=== PATIENT | male | born 1960 | race Caucasian/White ===

== ENCOUNTER 2019-09-15 14:35 | Inpatient (IN) | payer MEDICAID ==
[~2019-09-15] VITALS: Ht 185.4 cm; Wt 69.0 kg
[2019-09-15] MEDS ORDERED: pantoprazole 40 MG vial IV ONE (14:55)
[2019-09-15] MEDS ORDERED: CefTRIAXone/D5W-Rocephin 1gm 50 ML IV ONE (15:00)
[2019-09-15 15:50] LABS: BASOPHILS % (AUTO) 0.1 % (0-1); EOSINOPHILS % (AUTO) 0 % (0-6); HEMATOCRIT 39.9 % (42.0-52.0); HEMOGLOBIN 13.3 g/dl (14.0-17.9); LYMPHOCYTES # (AUTO) 0.5 X10'3 (1.1-4.8); LYMPHOCYTES % (AUTO) 2.5 % (21-51); MEAN CORPUSCULAR HEMOGLOBIN 31.1 PG (27.0-31.0); MEAN CORPUSCULAR HGB CONC 33.4 g/dL (33.0-36.5); MEAN CORPUSCULAR VOLUME 93.2 FL (78-98); MEAN PLATELET VOLUME 9.5 FL (7.4-10.4); MONOCYTES # (AUTO) 1.9 X10'3 (0-0.9); MONOCYTES % (AUTO) 9.4 % (2-12); NEUTROPHILS # (AUTO) 18.2 X10'3 (1.8-7.7); PLATELET COUNT 184 X10'3 (140-440); RED BLOOD COUNT 4.28 X10'6 (4.70-6.10); WHITE BLOOD COUNT 20.7 X10'3 (4.5-11.0)
[2019-09-15 15:58] LABS: ALANINE AMINOTRANSFERASE 31 U/L (12-78); ALBUMIN 2.6 G/DL (3.4-5.0); ALBUMIN/GLOBULIN RATIO 0.7 (1.1-1.5); ALKALINE PHOSPHATASE 48 IU/L (46-116); ANION GAP 13 (8-16); ASPARTATE AMINO TRANSFERASE 25 U/L (10-37); BILIRUBIN,TOTAL 0.8 MG/DL (0.1-1.0); BLOOD UREA NITROGEN 26 MG/DL (7-18); BUN/CREATININE RATIO 20.2 (5.4-32.0); CALCIUM 8.3 MG/DL (8.5-10.1); CHLORIDE 105 MMOL/L (99-107); CREATININE 1.29 MG/DL (0.60-1.10); GLUCOSE 128 MG/DL (70-104); POTASSIUM 3.4 MMOL/L (3.5-5.1); SODIUM 137 MMOL/L (135-145); TOTAL CARBON DIOXIDE 19.2 MMOL/L (24-32); TOTAL PROTEIN 6.6 G/DL (6.4-8.2); eGFR 57 ML/MIN
[2019-09-15 16:05] LABS: TOTAL CELLS COUNTED 100
[2019-09-15 16:06] LABS: PLATELET ESTIMATE NORMAL
[2019-09-15] MEDS ORDERED: ondansetron/PF 4mg/2ml inj IV PRN (17:30)
[2019-09-15] MEDS ORDERED: potassium CL 10mEq/100ml bag 100 ML IV PRN ×2 (17:30)
[2019-09-15] MEDS ORDERED: potassium Cl 20 mEq SR tablet PO PRN (17:30)
[2019-09-15] MEDS ORDERED: magnesium 4gm in 100ml NS 100 ML IV PRN (17:30)
[2019-09-15] MEDS ORDERED: acetaminophen 325mg tablet PO PRN (17:30)
[2019-09-15] MEDS ORDERED: morphine 2 MG/ML inj. syringe IV PRN ×2 (17:30)
[2019-09-15] MEDS ORDERED: magnesium Cl slow-release 64mg tablet PO PRN (17:30)
[2019-09-15] MEDS ORDERED: magnesium 2GM in 50ml NS 50 ML IV PRN (17:30)
[2019-09-15] MEDS ORDERED: mag hydrox/Alum hydrox/simeth 30ml oral suspension PO PRN (17:30)
--- NOTE | 2019-09-15 18:04 | NUR ---
ORTHO ZARA AT BEDSIDE FOR SPLINT CARE.
[2019-09-15] MEDS: normal saline 1000ml 1,000 ML IV SCH (18:07)
[2019-09-15] MEDS ORDERED: NO HOME MEDS (18:10)
[2019-09-15 18:19] LABS: CLARITY,URINE SLIGHTLY CLOUDY (Clear); COLOR,URINE YELLOW (Yellow); GLUCOSE, URINE NEGATIVE (Neg); KETONES,URINE TRACE mg/dl (Neg); LEUKOCYTE ESTERASE ,URINE NEGATIVE (Neg); NITRITES, URINE NEGATIVE (Neg); OCCULT BLOOD,URINE MODERATE (Neg); PROTEIN,URINE 100 mg/dl (Neg); UA COLLECTION TYPE STRAIGHT CATH
[2019-09-15 18:31] LABS: HYALINE CASTS >30 /LPF (NEGATIVE)
[2019-09-15 18:33] LABS: CELLULAR CAST 0-4 /LPF (NEGATIVE); RBC,URINE 0-2 /HPF (0-2)
[2019-09-15 18:34] LABS: BACTERIA,URINE 1+ /HPF (Neg); FINE GRANULAR CAST 0-3 /LPF (NEGATIVE); SQUAMOUS EPITHELIAL CELL,UR FEW /LPF (FEW)
--- NOTE | 2019-09-15 18:35 | NUR ---
received report from ED. room is ready. requested they bring pt's tray with them for dinner.
[2019-09-15 18:36] LABS: CREATINE KINASE 530 U/L (39-308)
[2019-09-15 18:49] LABS: URINE AMPHETAMINE SCREEN POSITIVE (Neg); URINE BARBITUATE SCREEN NEGATIVE (Neg); URINE BENZODIAZEPINES SCREEN NEGATIVE (Neg); URINE CANNABINOID SCREEN POSITIVE (Neg); URINE COCAINE SCREEN NEGATIVE (Neg); URINE METHADONE SCREEN NEGATIVE (Neg); URINE OPIATE SCREEN NEGATIVE (Neg); URINE PHENCYCLIDINE SCREEN NEGATIVE (Neg)
[2019-09-15 19:00] VITALS: BP_SYST 11; BP_SYST 119; BP_DIAS 65
[2019-09-15] MEDS: potassium Cl 20 mEq SR tablet PO PRN (19:09)
[2019-09-15] MEDS: heparin, porcine 5000 units/ml vial SQ SCH (19:10)
[2019-09-15] MEDS: vancomycin/NS 1 GM ADD-VANTAGE 250 ML IV SCH (19:15)
[2019-09-15] MEDS ORDERED: pneumococcal 23-VAL P-sac vacc 25 mcg/0.5ml vial IMVAC ONE (19:40)
[2019-09-15] MEDS: K and/or MAG REPLACEMENT MC SCH (20:00)
[2019-09-15] MEDS ORDERED: temazepam 15mg capsule PO PRN (21:00)
[2019-09-15 22:00] VITALS: BP 97/59
[2019-09-16] MEDS: normal saline 1000ml 1,000 ML IV SCH ×5 (01:28→22:47)
--- NOTE | 2019-09-16 02:05 | NUR ---
pictures of wounds taken. pt doesn't feel he needs to void yet. will continue to monitor.
[2019-09-16 02:30] VITALS: BP 113/77
[2019-09-16 06:00] VITALS: BP 114/69
[2019-09-16 06:01] LABS: ALBUMIN 2.1 G/DL (3.4-5.0); ANION GAP 9 (8-16); BLOOD UREA NITROGEN 17 MG/DL (7-18); CALCIUM 7.8 MG/DL (8.5-10.1); CHLORIDE 107 MMOL/L (99-107); CREATININE 0.81 MG/DL (0.60-1.10); GLUCOSE 112 MG/DL (70-104); POTASSIUM 3.6 MMOL/L (3.5-5.1); SODIUM 139 MMOL/L (135-145); TOTAL CARBON DIOXIDE 22.9 MMOL/L (24-32); eGFR > 90 ML/MIN
[2019-09-16 06:09] LABS: BASOPHILS % (AUTO) 0.1 % (0-1); EOSINOPHILS # (AUTO) 0.1 X10'3 (0-0.9); EOSINOPHILS % (AUTO) 0.3 % (0-6); HEMATOCRIT 37.3 % (42.0-52.0); HEMOGLOBIN 12.4 g/dl (14.0-17.9); LYMPHOCYTES # (AUTO) 0.7 X10'3 (1.1-4.8); LYMPHOCYTES % (AUTO) 3.4 % (21-51); MEAN CORPUSCULAR HEMOGLOBIN 30.8 PG (27.0-31.0); MEAN CORPUSCULAR HGB CONC 33.3 g/dL (33.0-36.5); MEAN CORPUSCULAR VOLUME 92.6 FL (78-98); MEAN PLATELET VOLUME 10.4 FL (7.4-10.4); MONOCYTES # (AUTO) 1.9 X10'3 (0-0.9); MONOCYTES % (AUTO) 9.2 % (2-12); NEUTROPHILS # (AUTO) 17.8 X10'3 (1.8-7.7); PLATELET COUNT 170 X10'3 (140-440); RED BLOOD COUNT 4.03 X10'6 (4.70-6.10); RED CELL DISTRIBUTION WIDTH 15.1 % (11.5-14.5); WHITE BLOOD COUNT 20.5 X10'3 (4.5-11.0)
--- NOTE | 2019-09-16 06:44 | NUR ---
Patient in room ORTHO 4023. I have received report from Roopa GARVEY and had the opportunity to ask questions and assume patient care.
[2019-09-16 07:03] LABS: PLATELET ESTIMATE NORMAL; TOTAL CELLS COUNTED 100
[2019-09-16] MEDS: vancomycin/NS 1 GM ADD-VANTAGE 250 ML IV SCH ×3 (07:58→22:46)
[2019-09-16] MEDS: heparin, porcine 5000 units/ml vial SQ SCH ×2 (08:00→19:47)
[2019-09-16] MEDS: K and/or MAG REPLACEMENT MC SCH ×2 (08:00→20:00)
[2019-09-16] MEDS: HYDROcodone/acetaminophen 5mg/325mg tablet PO PRN (08:04)
[2019-09-16 11:00] VITALS: BP 99/66
--- NOTE | 2019-09-16 13:49 | NUR ---
Malnutrition consult, patient reports recent weight loss of 2-13 lbs, eating poorly recently. Recent poor PO Intake likely r/t patient being lost in the [place] for three days with no water (except from stream) and no food. H/o homelessness (being followed by [facility]). Patient has traumatic injury to left elbow, right elbow and R/L knee with open scabbed area/swelling, and scratches all over from falling in the zimmer. He is eating well now, 100% PO. No edema. Patient acutely had poor PO intake d/t being lost in the zimmer however does not overall meet criteria for malnutrition. Addendum: 09/16/19 at [address] Amended: Links added.
[2019-09-16 18:00] VITALS: BP 105/63
--- NOTE | 2019-09-16 18:15 | NUR ---
Patient in room ORTHO 4023. I have received report from MARE Cunningham and had the opportunity to ask questions and assume patient care.
--- NOTE | 2019-09-16 18:19 | NUR ---
Problems reprioritized. Patient report given, questions answered & plan of care reviewed with Yaa GARVEY.
[2019-09-16] MEDS: HYDROcodone/acetaminophen 10/325mg tab PO PRN (18:33)
[2019-09-17] MEDS: normal saline 1000ml 1,000 ML IV SCH ×3 (05:24→22:07)
[2019-09-17 06:00] VITALS: BP 118/73
[2019-09-17] MEDS ORDERED: VANCOMYCIN LEVEL IV ONE (06:30)
--- NOTE | 2019-09-17 06:34 | NUR ---
Problems reprioritized. Patient report given, questions answered & plan of care reviewed with MARE Montenegro.
[2019-09-17 07:47] LABS: ALBUMIN 1.9 G/DL (3.4-5.0); ANION GAP 7 (8-16); BASOPHILS % (AUTO) 0.1 % (0-1); BLOOD UREA NITROGEN 10 MG/DL (7-18); BUN/CREATININE RATIO 14.3 (5.4-32.0); CALCIUM 7.6 MG/DL (8.5-10.1); CHLORIDE 108 MMOL/L (99-107); EOSINOPHILS # (AUTO) 0.2 X10'3 (0-0.9); EOSINOPHILS % (AUTO) 0.9 % (0-6); GLUCOSE 104 MG/DL (70-104); HEMATOCRIT 36.2 % (42.0-52.0); HEMOGLOBIN 12.2 g/dl (14.0-17.9); LYMPHOCYTES # (AUTO) 0.8 X10'3 (1.1-4.8); LYMPHOCYTES % (AUTO) 4.4 % (21-51); MAGNESIUM 1.9 MG/DL (1.5-2.4); MEAN CORPUSCULAR HEMOGLOBIN 31.1 PG (27.0-31.0); MEAN CORPUSCULAR HGB CONC 33.7 g/dL (33.0-36.5); MEAN CORPUSCULAR VOLUME 92.4 FL (78-98); MEAN PLATELET VOLUME 9.6 FL (7.4-10.4); MONOCYTES # (AUTO) 1.4 X10'3 (0-0.9); MONOCYTES % (AUTO) 7.8 % (2-12); NEUTROPHILS # (AUTO) 15.6 X10'3 (1.8-7.7); NEUTROPHILS % (AUTO) 86.8 % (42-75); PLATELET COUNT 169 X10'3 (140-440); POTASSIUM 3.5 MMOL/L (3.5-5.1); RED BLOOD COUNT 3.92 X10'6 (4.70-6.10); RED CELL DISTRIBUTION WIDTH 14.9 % (11.5-14.5); SODIUM 139 MMOL/L (135-145); TOTAL CARBON DIOXIDE 24.3 MMOL/L (24-32); VANCOMYCIN,TROUGH 8.1 UG/ML (6.0-14.0); WHITE BLOOD COUNT 17.9 X10'3 (4.5-11.0); eGFR > 90 ML/MIN
[2019-09-17] MEDS: K and/or MAG REPLACEMENT MC SCH ×2 (08:00→19:29)
[2019-09-17] MEDS: heparin, porcine 5000 units/ml vial SQ SCH ×2 (08:41→19:26)
[2019-09-17] MEDS: vancomycin/NS 1 GM ADD-VANTAGE 250 ML IV SCH (08:41)
[2019-09-17] MEDS: HYDROcodone/acetaminophen 10/325mg tab PO PRN ×3 (08:56→22:48)
[2019-09-17] MEDS: CefTRIAXone inj 2,000 MG in normal saline 100ml IV soln 100 ML IV SCH (15:11)
[2019-09-17] MEDS: VANCOmycin 1250MG/NS 250ml Bag 250 ML IV SCH ×2 (16:57→22:48)
[2019-09-17 18:00] VITALS: BP 123/77
--- NOTE | 2019-09-17 18:25 | NUR ---
Patient in room ORTHO 4023. I have received report from MARE Montenegro and had the opportunity to ask questions and assume patient care.
[2019-09-17 23:00] VITALS: BP 125/76
[2019-09-18] MEDS: normal saline 1000ml 1,000 ML IV SCH ×2 (05:45→15:38)
[2019-09-18 06:00] VITALS: BP 132/85
[2019-09-18 06:11] LABS: BASOPHILS % (AUTO) 0.2 % (0-1); EOSINOPHILS # (AUTO) 0.2 X10'3 (0-0.9); EOSINOPHILS % (AUTO) 1.2 % (0-6); HEMOGLOBIN 11.5 g/dl (14.0-17.9); LYMPHOCYTES % (AUTO) 6.3 % (21-51); MEAN CORPUSCULAR HEMOGLOBIN 31.2 PG (27.0-31.0); MEAN CORPUSCULAR HGB CONC 33.7 g/dL (33.0-36.5); MEAN CORPUSCULAR VOLUME 92.6 FL (78-98); MEAN PLATELET VOLUME 9.9 FL (7.4-10.4); MONOCYTES # (AUTO) 1.4 X10'3 (0-0.9); MONOCYTES % (AUTO) 9.1 % (2-12); NEUTROPHILS # (AUTO) 13.3 X10'3 (1.8-7.7); NEUTROPHILS % (AUTO) 83.2 % (42-75); PLATELET COUNT 186 X10'3 (140-440); RED BLOOD COUNT 3.67 X10'6 (4.70-6.10); WHITE BLOOD COUNT 15.9 X10'3 (4.5-11.0)
--- NOTE | 2019-09-18 06:28 | NUR ---
Problems reprioritized. Patient report given, questions answered & plan of care reviewed with MARE Gonzales.
--- NOTE | 2019-09-18 06:30 | NUR ---
Patient in room ORTHO 4023. I have received report from MARE Traore and had the opportunity to ask questions and assume patient care.
[2019-09-18 06:43] LABS: ALBUMIN 1.7 G/DL (3.4-5.0); ANION GAP 6 (8-16); BLOOD UREA NITROGEN 8 MG/DL (7-18); BUN/CREATININE RATIO 11.9 (5.4-32.0); CALCIUM 7.5 MG/DL (8.5-10.1); CHLORIDE 107 MMOL/L (99-107); CREATININE 0.67 MG/DL (0.60-1.10); GLUCOSE 94 MG/DL (70-104); MAGNESIUM 1.7 MG/DL (1.5-2.4); POTASSIUM 3.1 MMOL/L (3.5-5.1); SODIUM 141 MMOL/L (135-145); TOTAL CARBON DIOXIDE 27.7 MMOL/L (24-32); eGFR > 90 ML/MIN
[2019-09-18] MEDS: K and/or MAG REPLACEMENT MC SCH ×2 (08:00→20:00)
[2019-09-18] MEDS ORDERED: CefTRIAXone 2gm/D5W 50ml 50 ML IV SCH (08:00)
[2019-09-18] MEDS: CefTRIAXone inj 2,000 MG in normal saline 100ml IV soln 100 ML IV SCH (09:15)
[2019-09-18] MEDS: HYDROcodone/acetaminophen 10/325mg tab PO PRN ×2 (09:15→22:09)
[2019-09-18] MEDS: heparin, porcine 5000 units/ml vial SQ SCH ×2 (09:16→22:06)
[2019-09-18 10:00] VITALS: BP 128/73
[2019-09-18] MEDS: VANCOmycin 1250MG/NS 250ml Bag 250 ML IV SCH ×2 (10:45→15:33)
[2019-09-18] MEDS: potassium Cl 20 mEq SR tablet PO PRN (13:04)
[2019-09-18] MEDS ORDERED: VANCOMYCIN LEVEL IV ONE (14:30)
[2019-09-18 15:19] LABS: CREATINE KINASE 67 U/L (39-308)
[2019-09-18 18:00] VITALS: BP 155/86
--- NOTE | 2019-09-18 18:30 | NUR ---
Problems reprioritized. Patient report given, questions answered & plan of care reviewed with MARE Lao.
[2019-09-18 22:00] VITALS: BP 138/81
[2019-09-18] MEDS: VANCOMYCIN 1,500MG inj. 1,500 MG in normal saline 500ml IV soln 500 ML IV SCH (23:26)
[2019-09-19] MEDS: normal saline 1000ml 1,000 ML IV SCH ×3 (05:01→23:27)
[2019-09-19] MEDS ORDERED: magnesium 4gm in 100ml NS 100 ML IV PRN (05:25)
[2019-09-19] MEDS ORDERED: potassium CL 10mEq/100ml bag 100 ML IV PRN (05:25)
[2019-09-19] MEDS ORDERED: magnesium Cl slow-release 64mg tablet PO PRN (05:25)
[2019-09-19] MEDS ORDERED: potassium Cl 20 mEq SR tablet PO PRN (05:25)
[2019-09-19 06:00] VITALS: BP 138/88
[2019-09-19] MEDS: CefTRIAXone inj 2,000 MG in normal saline 100ml IV soln 100 ML IV SCH (06:57)
[2019-09-19 07:32] LABS: BASOPHILS # (AUTO) 0.1 X10'3 (0-0.2); BASOPHILS % (AUTO) 0.7 % (0-1); EOSINOPHILS # (AUTO) 0.2 X10'3 (0-0.9); EOSINOPHILS % (AUTO) 1.7 % (0-6); HEMATOCRIT 35.2 % (42.0-52.0); HEMOGLOBIN 11.8 g/dl (14.0-17.9); LYMPHOCYTES # (AUTO) 1.1 X10'3 (1.1-4.8); LYMPHOCYTES % (AUTO) 8.5 % (21-51); MEAN CORPUSCULAR HEMOGLOBIN 31.2 PG (27.0-31.0); MEAN CORPUSCULAR HGB CONC 33.6 g/dL (33.0-36.5); MEAN CORPUSCULAR VOLUME 92.8 FL (78-98); MEAN PLATELET VOLUME 8.9 FL (7.4-10.4); MONOCYTES # (AUTO) 1.2 X10'3 (0-0.9); MONOCYTES % (AUTO) 9.6 % (2-12); NEUTROPHILS # (AUTO) 10.2 X10'3 (1.8-7.7); NEUTROPHILS % (AUTO) 79.5 % (42-75); PLATELET COUNT 207 X10'3 (140-440); RED CELL DISTRIBUTION WIDTH 15.2 % (11.5-14.5); WHITE BLOOD COUNT 12.8 X10'3 (4.5-11.0)
[2019-09-19 07:46] LABS: ALBUMIN 1.6 G/DL (3.4-5.0); ANION GAP 5 (8-16); BLOOD UREA NITROGEN 7 MG/DL (7-18); BUN/CREATININE RATIO 10.3 (5.4-32.0); CHLORIDE 108 MMOL/L (99-107); CREATININE 0.68 MG/DL (0.60-1.10); GLUCOSE 96 MG/DL (70-104); MAGNESIUM 1.7 MG/DL (1.5-2.4); POTASSIUM 3.3 MMOL/L (3.5-5.1); SODIUM 143 MMOL/L (135-145); TOTAL CARBON DIOXIDE 30.1 MMOL/L (24-32); eGFR > 90 ML/MIN
[2019-09-19] MEDS: K and/or MAG REPLACEMENT MC SCH ×2 (08:00→19:13)
[2019-09-19] MEDS: VANCOMYCIN 1,500MG inj. 1,500 MG in normal saline 500ml IV soln 500 ML IV SCH ×3 (08:29→23:26)
[2019-09-19] MEDS: HYDROcodone/acetaminophen 10/325mg tab PO PRN ×3 (08:30→20:21)
[2019-09-19] MEDS: heparin, porcine 5000 units/ml vial SQ SCH ×2 (08:30→20:16)
[2019-09-19] MEDS: potassium Cl 20 mEq SR tablet PO PRN ×2 (08:31→12:50)
[2019-09-19 10:00] VITALS: BP 134/86
--- NOTE | 2019-09-19 13:30 | NUR ---
At approximately 1015, and MARE Craig, Wound Care Nurse, arrived at pts bedside and I observed Dr. Martinez was shown how red and swollen purple and red pt was from his left fingers to the middle of his left chest. 3+ swelling noted in his LUE to his mid Left chest. Dr. Martinez stated the next step would be for MARE Craig to order a CT of chest and LUE. Kiara informed me that she would input the orders as soon as possible. Ariana from CT called at 1330, to confirm she had received the orders for the CT Chest and LUE for today. Catalina asked me to assist patient in completing the CT form and fax back to her licha, and she stated because he ate lunch she would wait one hour until she brought the patient to the CT Scanner. At approximately 1530, Ariana called back to inform me to disconnect his IV and assist him with getting into a wheelchair. This was done in a timely manner. Pt arrived back to his room at approximately 1615. Pt stated they only did a CT of his left arm and did not do a CT, as ordered by MD of his chest. TC placed to Ariana to request information on why they did not follow the physicians order for a CT Chest as ordered by Dr. Martinez. Ariana stated they read where he had open areas on his left elbow, so that is the one they completed. Informed Ariana that it was important to complete a CT of his chest, as ordered by Dr. Martinez, to r/o abscess or any other complications pt was experiencing at this time, with the increased redness and swellling of his left arm. Ariana told me to call Dr. Martinez to let him know it was not done, and wanted to have me ask him if they should do it after all. Informed Ariana to call Dr. Martinez herself, as they were the ones who cancelled the MD order without his consent. Catalina then hung up the phone.
[2019-09-19] MEDS ORDERED: iohexol 300mg/ml 100ml inj. ONE (14:22)
[2019-09-19 17:30] VITALS: BP 142/89
--- NOTE | 2019-09-19 18:30 | NUR ---
Problems reprioritized. Patient report given, questions answered & plan of care reviewed with MARE Packer.
[2019-09-19] MEDS: lactobacillus rhamnosus 10,000 MMU CELLS/CAPSULE PO SCH (20:15)
[2019-09-19 22:00] VITALS: BP 139/82
[2019-09-19] MEDS ORDERED: VANCOMYCIN LEVEL IV ONE (22:30)
--- NOTE | 2019-09-19 22:57 | NUR ---
Informed pharmacy of [facility] trough 20.3. Sema said to finish/ give dose and they will hold next dose.
[2019-09-20] MEDS: HYDROcodone/acetaminophen 10/325mg tab PO PRN ×4 (05:19→19:52)
[2019-09-20 05:59] LABS: ALBUMIN 1.6 G/DL (3.4-5.0); ANION GAP 6 (8-16); BLOOD UREA NITROGEN 9 MG/DL (7-18); CALCIUM 8.1 MG/DL (8.5-10.1); CHLORIDE 107 MMOL/L (99-107); CREATININE 0.69 MG/DL (0.60-1.10); GLUCOSE 91 MG/DL (70-104); MAGNESIUM 1.6 MG/DL (1.5-2.4); POTASSIUM 3.8 MMOL/L (3.5-5.1); SODIUM 141 MMOL/L (135-145); TOTAL CARBON DIOXIDE 28.2 MMOL/L (24-32); eGFR > 90 ML/MIN
--- NOTE | 2019-09-20 06:00 | NUR ---
Patient in room ORTHO 4023. I have received report from Birdie and had the opportunity to ask questions and assume patient care.
[2019-09-20 06:02] LABS: BASOPHILS # (AUTO) 0.1 X10'3 (0-0.2); BASOPHILS % (AUTO) 0.6 % (0-1); EOSINOPHILS # (AUTO) 0.3 X10'3 (0-0.9); EOSINOPHILS % (AUTO) 2.7 % (0-6); HEMATOCRIT 35.8 % (42.0-52.0); HEMOGLOBIN 12.2 g/dl (14.0-17.9); LYMPHOCYTES # (AUTO) 1.2 X10'3 (1.1-4.8); LYMPHOCYTES % (AUTO) 11.1 % (21-51); MEAN CORPUSCULAR HEMOGLOBIN 31.6 PG (27.0-31.0); MEAN CORPUSCULAR HGB CONC 34.2 g/dL (33.0-36.5); MEAN CORPUSCULAR VOLUME 92.6 FL (78-98); MEAN PLATELET VOLUME 8.9 FL (7.4-10.4); MONOCYTES # (AUTO) 1.1 X10'3 (0-0.9); MONOCYTES % (AUTO) 10.5 % (2-12); NEUTROPHILS # (AUTO) 8.2 X10'3 (1.8-7.7); NEUTROPHILS % (AUTO) 75.1 % (42-75); PLATELET COUNT 249 X10'3 (140-440); RED BLOOD COUNT 3.87 X10'6 (4.70-6.10); RED CELL DISTRIBUTION WIDTH 15.1 % (11.5-14.5); WHITE BLOOD COUNT 10.9 X10'3 (4.5-11.0)
--- NOTE | 2019-09-20 06:20 | NUR ---
Report given to shaun Gardiner.
[2019-09-20] MEDS: K and/or MAG REPLACEMENT MC SCH ×2 (08:00→20:00)
[2019-09-20] MEDS: heparin, porcine 5000 units/ml vial SQ SCH ×2 (09:40→19:44)
[2019-09-20] MEDS: lactobacillus rhamnosus 10,000 MMU CELLS/CAPSULE PO SCH ×2 (09:40→19:43)
[2019-09-20 10:00] VITALS: BP 144/88
--- NOTE | 2019-09-20 12:39 | NUR ---
Initial: Pt PO 100% avg regular diet receiving double eggs and double entrees meeting needs. Bilateral knee unstageable pressure ulcers, R elbow unstageable PU, and L elbow unstageable necrotic PU. Meeting wound healing needs w/ current PO. LBM 09/16. Will continue to monitor. Rec: 1. continue regular diet; double proteins TIDWM 2. bowel care as needed 3. wt per rx Addendum: 09/20/19 at [address] Amended: Links added.
[2019-09-20] MEDS: CefTRIAXone/D5W-Rocephin 1gm 50 ML IV SCH (13:48)
[2019-09-20] MEDS ORDERED: ringers solution, lacted 1,000 ML IV ONE (16:47)
[2019-09-20 18:00] VITALS: BP 139/94
--- NOTE | 2019-09-20 18:25 | NUR ---
Problems reprioritized. Patient report given, questions answered & plan of care reviewed with Bernarda.
--- NOTE | 2019-09-20 18:30 | NUR ---
Patient in room ORTHO 4023. I have received report from Juan GARVEY and had the opportunity to ask questions and assume patient care.
[2019-09-20 22:00] VITALS: BP 117/48
[2019-09-21] VITALS (19 sets, daily range): BP systolic 131–159; BP diastolic 82–98
[2019-09-21] MEDS ORDERED: famotidine 10mg tablet PO ONE (06:00)
--- NOTE | 2019-09-21 06:00 | NUR ---
Patient in room ORTHO 4023. I have received report from Isadora GARVEY and had the opportunity to ask questions and assume patient care.
--- NOTE | 2019-09-21 06:04 | NUR ---
Problems reprioritized. Patient report given, questions answered & plan of care reviewed with Marisa GARVEY.
[2019-09-21] MEDS: heparin, porcine 5000 units/ml vial SQ SCH ×2 (07:02→20:55)
[2019-09-21] MEDS: CefTRIAXone/D5W-Rocephin 1gm 50 ML IV SCH (07:48)
[2019-09-21] MEDS: lactobacillus rhamnosus 10,000 MMU CELLS/CAPSULE PO SCH ×2 (07:48→20:54)
[2019-09-21] MEDS: K and/or MAG REPLACEMENT MC SCH ×2 (07:49→20:00)
[2019-09-21] MEDS ORDERED: ceFAZolin 1000mg inj ONE ×3 (09:18→11:38)
[2019-09-21] MEDS ORDERED: bacitracin 15gm ointment TP ONE (09:18)
[2019-09-21] MEDS ORDERED: ringers solution, lacted 1,000 ML IV SCH (10:22)
[2019-09-21] MEDS ORDERED: ondansetron/PF 4mg/2ml inj IV PRN (10:25)
[2019-09-21] MEDS ORDERED: meperidine/PF 25mg/ml syringe IV PRN ×2 (10:25)
[2019-09-21] MEDS ORDERED: proCHLORperazine 10 MG/2 ml inj IV PRN (10:25)
[2019-09-21] MEDS ORDERED: morphine 2 MG/ML inj. syringe IV PRN (10:25)
[2019-09-21] MEDS ORDERED: sevoflurane 250ml liquid IH ONE (10:39)
[2019-09-21] MEDS ORDERED: LIDOcaine 2% (20mg/ml) 5ml vial ONE (10:44)
[2019-09-21] MEDS ORDERED: fentaNYL/PF 50MCG/1 ML 2ML syringe ONE ×2 (10:44→11:14)
[2019-09-21] MEDS ORDERED: midazolam 2 mg/2 ml injection ONE (10:44)
[2019-09-21] MEDS ORDERED: propofol inj 20 ML IV ONE (10:44)
--- NOTE | 2019-09-21 11:56 | NUR ---
Received from OR via ortho bed, accompanied by Anesthesiologist Trip and report given by Anesthesiolgist. Pt awake and yelling in pain, VS stable, left arm wrapped with splint and carlene wraps. reports wound not closed. IV with IVF LR at 100cc/hr. SCDs on. Will reinforce dressing per surgeons request.
[2019-09-21] MEDS: morphine 4 MG/ML inj SYRINge IV PRN ×3 (12:07→12:38)
[2019-09-21] MEDS: meperidine/PF 25mg/ml syringe IV PRN ×3 (12:08→12:32)
--- NOTE | 2019-09-21 12:10 | NUR ---
Surgeon made aware that dressing is saturated through onto sheets. He states he is aware and expects it to bleed a lot today because wound is open. I requested H/H for 2 hours from now on floor MD states to order.
[2019-09-21] MEDS ORDERED: CefTRIAXone inj 2,000 MG in normal saline 100ml IV soln 50 ML IV SCH (12:30)
--- NOTE | 2019-09-21 12:45 | NUR ---
Dressing reinforced with ABDs and gauze pads with another SANDER wrap.
--- NOTE | 2019-09-21 12:56 | NUR ---
Report called to receiving nurse. Transferred via ortho bed. Belongings stayed in room. Special Issues communicated to receiving ortho nurse. Reviewed all questions. Pt states pain much more tolerable at 4/10. BLL and call light within reach, chart at bedside.
[2019-09-21] MEDS: HYDROcodone/acetaminophen 10/325mg tab PO PRN (13:25)
[2019-09-21 13:39] LABS: HEMATOCRIT 37.7 % (42.0-52.0); HEMOGLOBIN 12.5 g/dl (14.0-17.9); MEAN CORPUSCULAR HEMOGLOBIN 30.6 PG (27.0-31.0); MEAN CORPUSCULAR HGB CONC 33.2 g/dL (33.0-36.5); MEAN CORPUSCULAR VOLUME 92.1 FL (78-98); PLATELET COUNT 313 X10'3 (140-440); RED BLOOD COUNT 4.09 X10'6 (4.70-6.10); RED CELL DISTRIBUTION WIDTH 15.3 % (11.5-14.5); WHITE BLOOD COUNT 11.4 X10'3 (4.5-11.0)
[2019-09-21] MEDS: HYDROmorphone 1 mg/ml syringe IV PRN (15:29)
[2019-09-21] MEDS ORDERED: clindamycin-Cleocin 900mg/D5W 50 ML IV SCH (16:00)
[2019-09-21] MEDS: diphenhydrAMINE 25mg capsule PO PRN (22:00)
[2019-09-22] VITALS (18 sets, daily range): BP systolic 113–150; BP diastolic 76–96
[2019-09-22] MEDS: HYDROcodone/acetaminophen 10/325mg tab PO PRN (04:22)
--- NOTE | 2019-09-22 06:46 | NUR ---
Problems reprioritized. Patient report given, questions answered & plan of care reviewed with MARE Ramirez.
[2019-09-22] MEDS: diphenhydrAMINE 25mg capsule PO PRN (07:59)
[2019-09-22] MEDS: lactobacillus rhamnosus 10,000 MMU CELLS/CAPSULE PO SCH ×2 (07:59→19:36)
[2019-09-22] MEDS: K and/or MAG REPLACEMENT MC SCH ×2 (08:00→19:36)
[2019-09-22] MEDS: CefTRIAXone inj 2,000 MG in normal saline 100ml IV soln 100 ML IV SCH (08:00)
[2019-09-22] MEDS: heparin, porcine 5000 units/ml vial SQ SCH ×2 (08:00→19:35)
[2019-09-22] MEDS ORDERED: ringers solution, lacted 1,000 ML IV SCH (11:49)
[2019-09-22] MEDS ORDERED: acetaminophen 1,000mg/100ml IV 100 ML IV PRN (11:50)
[2019-09-22] MEDS ORDERED: meperidine/PF 25mg/ml syringe IV PRN ×3 (11:50)
[2019-09-22] MEDS ORDERED: morphine 2 MG/ML inj. syringe IV PRN (11:50)
[2019-09-22] MEDS ORDERED: proCHLORperazine 10 MG/2 ml inj IV PRN (11:50)
[2019-09-22] MEDS ORDERED: ondansetron/PF 4mg/2ml inj IV PRN (11:50)
[2019-09-22] MEDS ORDERED: morphine 4 MG/ML inj SYRINge IV PRN (11:50)
[2019-09-22] MEDS ORDERED: LIDOcaine 1%/PF 5ML 10 MG/ML VIAL ONE (12:18)
[2019-09-22] MEDS ORDERED: sevoflurane 250ml liquid IH ONE (12:18)
[2019-09-22] MEDS ORDERED: fentaNYL/PF 50MCG/1 ML 2ML syringe ONE (12:25)
[2019-09-22] MEDS ORDERED: midazolam 2 mg/2 ml injection ONE (12:25)
[2019-09-22] MEDS ORDERED: propofol inj 20 ML IV ONE (12:43)
[2019-09-22] MEDS ORDERED: ondansetron/PF 4mg/2ml inj ONE (12:43)
[2019-09-22] MEDS ORDERED: dexamethasone sod phosphate 4mg/ml inj. ONE (12:43)
--- NOTE | 2019-09-22 13:11 | NUR ---
Received from OR via ORTHO BED WITH ZAYDA , accompanied by Anesthesiologist DEON and report given by Anesthesiolgist. PATIENT WITH 20G PIV IN RIGHT UE. LEFT UE IS IN SANDER BANDAGE. WOUND CARE PRESENT TO CARLOS DOVE. SCDS ON. Addendum: 09/22/19 at 1331 by Minh Raymundo RN, RN Amended: Links added.
--- NOTE | 2019-09-22 14:11 | NUR ---
Report called to receiving nurse. Transferred via ORTHO BED WITH OHFT, NO Belongings . Special Issues communicated to receiving nurse GUI [email or web address]. DRESSING CDI. PAIN DOWN TO 04/18. + CAP REFILL TO ALL FINGERS ON LEFT UE. NO NUMBNESS OR TINGLING. MOVES ALL FINGERS AND THUMB. BED DOWN AND CALL LIGHT PRESENT. Addendum: 09/22/19 at 1425 by Minh Raymundo RN, RN Amended: Links added.
--- NOTE | 2019-09-22 17:00 | NUR ---
Patient has sensation, good cap refill, warm left hand. Able to move fingers. No drainage in the wound vac. Alert and oriented, no pain reported.
--- NOTE | 2019-09-22 18:15 | NUR ---
Patient in room ORTHO 4023. I have received report from Ashley GARVEY and had the opportunity to ask questions and assume patient care.
--- NOTE | 2019-09-22 18:16 | NUR ---
Problems reprioritized. Patient report given, questions answered & plan of care reviewed with Krissy GARVEY.
[2019-09-22] MEDS: linezolid 600mg tablet PO SCH (19:35)
[2019-09-23 02:00] VITALS: BP 117/74
[2019-09-23] MEDS: diphenhydrAMINE 25mg capsule PO PRN ×2 (05:14→19:15)
[2019-09-23 06:00] VITALS: BP 121/82
--- NOTE | 2019-09-23 06:40 | NUR ---
Problems reprioritized. Patient report given, questions answered & plan of care reviewed with Yasmeen GARVEY.
[2019-09-23] MEDS: K and/or MAG REPLACEMENT MC SCH ×2 (08:00→20:00)
[2019-09-23] MEDS: linezolid 600mg tablet PO SCH ×2 (08:07→19:15)
[2019-09-23] MEDS: CefTRIAXone inj 2,000 MG in normal saline 100ml IV soln 100 ML IV SCH (08:07)
[2019-09-23] MEDS: heparin, porcine 5000 units/ml vial SQ SCH ×2 (08:08→19:16)
[2019-09-23] MEDS: lactobacillus rhamnosus 10,000 MMU CELLS/CAPSULE PO SCH ×2 (08:08→19:15)
[2019-09-23 10:03] VITALS: BP 135/83
[2019-09-23] MEDS: HYDROcodone/acetaminophen 10/325mg tab PO PRN (13:57)
--- NOTE | 2019-09-23 14:47 | NUR ---
Tracy ed: pt given written low tyramine education handout with verbal review. Addendum: 09/23/19 at [address] Amended: Links added.
[2019-09-23 18:00] VITALS: BP 135/82
--- NOTE | 2019-09-23 18:21 | NUR ---
Problems reprioritized. Patient report given, questions answered & plan of care reviewed with Frank GARVEY.
--- NOTE | 2019-09-23 18:30 | NUR ---
Patient in room ORTHO 4023. I have received report from JAVI GARVEY and had the opportunity to ask questions and assume patient care.
[2019-09-23 23:00] VITALS: BP 126/82
[2019-09-24] MEDS: diphenhydrAMINE 25mg capsule PO PRN (04:55)
[2019-09-24] MEDS: HYDROcodone/acetaminophen 10/325mg tab PO PRN (04:55)
[2019-09-24 06:00] VITALS: BP 135/87
[2019-09-24 06:23] LABS: ALANINE AMINOTRANSFERASE 56 U/L (12-78); ALBUMIN 2.2 G/DL (3.4-5.0); ALBUMIN/GLOBULIN RATIO 0.6 (1.1-1.5); ALKALINE PHOSPHATASE 37 IU/L (46-116); ANION GAP 6 (8-16); ASPARTATE AMINO TRANSFERASE 36 U/L (10-37); BILIRUBIN,TOTAL 0.2 MG/DL (0.1-1.0); BLOOD UREA NITROGEN 16 MG/DL (7-18); BUN/CREATININE RATIO 18.8 (5.4-32.0); CALCIUM 7.7 MG/DL (8.5-10.1); CHLORIDE 106 MMOL/L (99-107); CREATININE 0.85 MG/DL (0.60-1.10); GLUCOSE 93 MG/DL (70-104); SODIUM 139 MMOL/L (135-145); TOTAL PROTEIN 6.2 G/DL (6.4-8.2); eGFR > 90 ML/MIN
--- NOTE | 2019-09-24 06:26 | NUR ---
Problems reprioritized. Patient report given, questions answered & plan of care reviewed with ROB GARVEY.
--- NOTE | 2019-09-24 06:33 | NUR ---
Patient in room ORTHO 4023. I have received report from MARE Marie and had the opportunity to ask questions and assume patient care.
[2019-09-24 06:36] LABS: BASOPHILS # (AUTO) 0.1 X10'3 (0-0.2); BASOPHILS % (AUTO) 0.7 % (0-1); EOSINOPHILS # (AUTO) 0.4 X10'3 (0-0.9); EOSINOPHILS % (AUTO) 2.9 % (0-6); HEMATOCRIT 35.4 % (42.0-52.0); HEMOGLOBIN 11.6 g/dl (14.0-17.9); LYMPHOCYTES # (AUTO) 1.7 X10'3 (1.1-4.8); LYMPHOCYTES % (AUTO) 13.4 % (21-51); MEAN CORPUSCULAR HEMOGLOBIN 30.7 PG (27.0-31.0); MEAN CORPUSCULAR HGB CONC 32.8 g/dL (33.0-36.5); MEAN CORPUSCULAR VOLUME 93.6 FL (78-98); MEAN PLATELET VOLUME 8.3 FL (7.4-10.4); MONOCYTES % (AUTO) 7.9 % (2-12); NEUTROPHILS # (AUTO) 9.4 X10'3 (1.8-7.7); NEUTROPHILS % (AUTO) 75.1 % (42-75); PLATELET COUNT 407 X10'3 (140-440); RED BLOOD COUNT 3.78 X10'6 (4.70-6.10); RED CELL DISTRIBUTION WIDTH 15.5 % (11.5-14.5); WHITE BLOOD COUNT 12.5 X10'3 (4.5-11.0)
[2019-09-24] MEDS: K and/or MAG REPLACEMENT MC SCH ×2 (07:08→20:00)
[2019-09-24 08:28] LABS: ANISOCYTOSIS 1+; PLATELET ESTIMATE NORMAL; TOTAL CELLS COUNTED 100
[2019-09-24] MEDS: lactobacillus rhamnosus 10,000 MMU CELLS/CAPSULE PO SCH ×2 (08:29→19:37)
[2019-09-24] MEDS: CefTRIAXone inj 2,000 MG in normal saline 100ml IV soln 100 ML IV SCH (08:29)
[2019-09-24] MEDS: linezolid 600mg tablet PO SCH ×2 (08:29→19:38)
[2019-09-24] MEDS: heparin, porcine 5000 units/ml vial SQ SCH ×2 (08:29→19:37)
[2019-09-24 10:00] VITALS: BP 131/86
--- NOTE | 2019-09-24 15:04 | NUR ---
Problems reprioritized. Patient report given, questions answered & plan of care reviewed with MARE Cordova.
--- NOTE | 2019-09-24 15:11 | NUR ---
Received report from MARE Henry and assumed care of pt
--- NOTE | 2019-09-24 18:18 | NUR ---
Patient in room ORTHO 4023. I have received report from Tasha GARVEY and had the opportunity to ask questions and assume patient care. pt refused 1700 vital signs. will continue to monitor.
--- NOTE | 2019-09-24 18:18 | NUR ---
Problems reprioritized. Patient report given, questions answered & plan of care reviewed with Raiza.
[2019-09-24] MEDS: HYDROcodone/acetaminophen 5mg/325mg tablet PO PRN (19:37)
[2019-09-24 22:00] VITALS: BP 133/81
[2019-09-25] MEDS: diphenhydrAMINE 25mg capsule PO PRN ×2 (05:00→20:17)
[2019-09-25] MEDS: acetaminophen 325mg tablet PO PRN (05:02)
[2019-09-25 05:44] LABS: ALANINE AMINOTRANSFERASE 54 U/L (12-78); ALBUMIN 2.4 G/DL (3.4-5.0); ALBUMIN/GLOBULIN RATIO 0.5 (1.1-1.5); ALKALINE PHOSPHATASE 47 IU/L (46-116); ANION GAP 8 (8-16); ASPARTATE AMINO TRANSFERASE 27 U/L (10-37); BILIRUBIN,TOTAL 0.2 MG/DL (0.1-1.0); BLOOD UREA NITROGEN 15 MG/DL (7-18); BUN/CREATININE RATIO 18.1 (5.4-32.0); CALCIUM 8.1 MG/DL (8.5-10.1); CHLORIDE 104 MMOL/L (99-107); CREATININE 0.83 MG/DL (0.60-1.10); GLUCOSE 100 MG/DL (70-104); SODIUM 138 MMOL/L (135-145); TOTAL CARBON DIOXIDE 26.2 MMOL/L (24-32); TOTAL PROTEIN 6.8 G/DL (6.4-8.2); eGFR > 90 ML/MIN
[2019-09-25 05:46] LABS: BASOPHILS # (AUTO) 0.1 X10'3 (0-0.2); BASOPHILS % (AUTO) 0.9 % (0-1); EOSINOPHILS # (AUTO) 0.3 X10'3 (0-0.9); EOSINOPHILS % (AUTO) 2.7 % (0-6); HEMATOCRIT 37.5 % (42.0-52.0); HEMOGLOBIN 12.5 g/dl (14.0-17.9); LYMPHOCYTES # (AUTO) 1.7 X10'3 (1.1-4.8); LYMPHOCYTES % (AUTO) 14.7 % (21-51); MEAN CORPUSCULAR HEMOGLOBIN 30.8 PG (27.0-31.0); MEAN CORPUSCULAR HGB CONC 33.3 g/dL (33.0-36.5); MEAN CORPUSCULAR VOLUME 92.4 FL (78-98); MONOCYTES # (AUTO) 0.9 X10'3 (0-0.9); MONOCYTES % (AUTO) 7.6 % (2-12); NEUTROPHILS # (AUTO) 8.4 X10'3 (1.8-7.7); NEUTROPHILS % (AUTO) 74.1 % (42-75); PLATELET COUNT 472 X10'3 (140-440); RED BLOOD COUNT 4.05 X10'6 (4.70-6.10); RED CELL DISTRIBUTION WIDTH 15.2 % (11.5-14.5); WHITE BLOOD COUNT 11.3 X10'3 (4.5-11.0)
--- NOTE | 2019-09-25 05:54 | NUR ---
Problems reprioritized. Patient report given, questions answered & plan of care reviewed with Kathi GARVEY.
[2019-09-25 06:00] VITALS: BP 119/76
[2019-09-25 07:39] LABS: TOTAL CELLS COUNTED 100
[2019-09-25 07:40] LABS: PLATELET ESTIMATE INCREASED; POLYCHROMASIA FEW
[2019-09-25 07:41] LABS: LARGE PLATELETS FEW
[2019-09-25] MEDS: heparin, porcine 5000 units/ml vial SQ SCH ×2 (08:00→20:16)
[2019-09-25] MEDS: K and/or MAG REPLACEMENT MC SCH ×2 (08:00→18:52)
[2019-09-25] MEDS: lactobacillus rhamnosus 10,000 MMU CELLS/CAPSULE PO SCH ×2 (08:38→20:16)
[2019-09-25] MEDS: linezolid 600mg tablet PO SCH ×2 (08:38→20:16)
[2019-09-25 10:00] VITALS: BP 126/72
--- NOTE | 2019-09-25 14:44 | NUR ---
Reassessment: Pt PO 100% avg meals w/ double proteins meeting needs. LBM 09/23. No nutrition concerns at this time. Will continue to monitor. Rec: 1. continue regular diet; double proteins TIDWM 2. bowel care as needed 3. wt per rx Addendum: 09/25/19 at [address] Amended: Links added.
[2019-09-25] MEDS: HYDROcodone/acetaminophen 10/325mg tab PO PRN (16:12)
[2019-09-25 18:00] VITALS: BP 135/87
[2019-09-25 22:00] VITALS: BP 128/78
[2019-09-26 06:00] VITALS: BP 121/81
--- NOTE | 2019-09-26 06:00 | NUR ---
REPORT GIVEN TO MARE SMITH.
[2019-09-26 06:40] LABS: ALANINE AMINOTRANSFERASE 56 U/L (12-78); ALBUMIN 2.8 G/DL (3.4-5.0); ALBUMIN/GLOBULIN RATIO 0.6 (1.1-1.5); ALKALINE PHOSPHATASE 48 IU/L (46-116); ANION GAP 9 (8-16); ASPARTATE AMINO TRANSFERASE 25 U/L (10-37); BILIRUBIN,TOTAL 0.2 MG/DL (0.1-1.0); BLOOD UREA NITROGEN 20 MG/DL (7-18); BUN/CREATININE RATIO 22.2 (5.4-32.0); CALCIUM 8.7 MG/DL (8.5-10.1); CHLORIDE 104 MMOL/L (99-107); GLUCOSE 89 MG/DL (70-104); POTASSIUM 4.3 MMOL/L (3.5-5.1); SODIUM 138 MMOL/L (135-145); TOTAL CARBON DIOXIDE 24.9 MMOL/L (24-32); TOTAL PROTEIN 7.5 G/DL (6.4-8.2); eGFR 87 ML/MIN
[2019-09-26 07:15] LABS: BASOPHILS # (AUTO) 0.1 X10'3 (0-0.2); BASOPHILS % (AUTO) 0.8 % (0-1); EOSINOPHILS # (AUTO) 0.3 X10'3 (0-0.9); EOSINOPHILS % (AUTO) 2.7 % (0-6); HEMOGLOBIN 13.3 g/dl (14.0-17.9); LYMPHOCYTES # (AUTO) 1.9 X10'3 (1.1-4.8); LYMPHOCYTES % (AUTO) 15.7 % (21-51); MEAN CORPUSCULAR HEMOGLOBIN 31.1 PG (27.0-31.0); MEAN CORPUSCULAR HGB CONC 33.1 g/dL (33.0-36.5); MEAN CORPUSCULAR VOLUME 93.8 FL (78-98); MEAN PLATELET VOLUME 8.4 FL (7.4-10.4); MONOCYTES # (AUTO) 0.8 X10'3 (0-0.9); MONOCYTES % (AUTO) 6.5 % (2-12); NEUTROPHILS # (AUTO) 9.1 X10'3 (1.8-7.7); NEUTROPHILS % (AUTO) 74.3 % (42-75); PLATELET COUNT 492 X10'3 (140-440); RED BLOOD COUNT 4.26 X10'6 (4.70-6.10); RED CELL DISTRIBUTION WIDTH 15.3 % (11.5-14.5); WHITE BLOOD COUNT 12.3 X10'3 (4.5-11.0)
[2019-09-26] MEDS: K and/or MAG REPLACEMENT MC SCH ×2 (08:00→20:00)
[2019-09-26] MEDS: lactobacillus rhamnosus 10,000 MMU CELLS/CAPSULE PO SCH ×2 (08:39→20:34)
[2019-09-26] MEDS: linezolid 600mg tablet PO SCH ×2 (08:39→20:34)
[2019-09-26] MEDS: heparin, porcine 5000 units/ml vial SQ SCH ×2 (08:40→20:34)
[2019-09-26] MEDS: HYDROmorphone 1 mg/ml syringe IV PRN (10:02)
[2019-09-26 10:29] LABS: PLATELET ESTIMATE INCREASED; TOTAL CELLS COUNTED 100
[2019-09-26 10:30] LABS: TOXIC GRANULATION 2+; TOXIC VACUOLATION FEW
[2019-09-26 11:00] VITALS: BP 141/87
[2019-09-26 18:00] VITALS: BP 114/81
--- NOTE | 2019-09-26 18:43 | NUR ---
Report to Deanna GARVEY
[2019-09-26] MEDS: acetaminophen 325mg tablet PO PRN (20:36)
[2019-09-26 22:00] VITALS: BP 120/80
[2019-09-27 06:00] VITALS: BP 117/82
--- NOTE | 2019-09-27 06:24 | NUR ---
Problems reprioritized. Patient report given, questions answered & plan of care reviewed with MARE STAHL.
[2019-09-27 06:36] LABS: BASOPHILS # (AUTO) 0.1 X10'3 (0-0.2); BASOPHILS % (AUTO) 0.9 % (0-1); EOSINOPHILS # (AUTO) 0.3 X10'3 (0-0.9); HEMATOCRIT 38.8 % (42.0-52.0); HEMOGLOBIN 12.8 g/dl (14.0-17.9); LYMPHOCYTES # (AUTO) 1.7 X10'3 (1.1-4.8); MEAN CORPUSCULAR HEMOGLOBIN 30.4 PG (27.0-31.0); MEAN CORPUSCULAR HGB CONC 33.1 g/dL (33.0-36.5); MEAN CORPUSCULAR VOLUME 91.9 FL (78-98); MEAN PLATELET VOLUME 8.1 FL (7.4-10.4); MONOCYTES # (AUTO) 0.7 X10'3 (0-0.9); MONOCYTES % (AUTO) 7.1 % (2-12); NEUTROPHILS # (AUTO) 7.3 X10'3 (1.8-7.7); PLATELET COUNT 516 X10'3 (140-440); RED BLOOD COUNT 4.22 X10'6 (4.70-6.10); RED CELL DISTRIBUTION WIDTH 15.4 % (11.5-14.5); WHITE BLOOD COUNT 10.1 X10'3 (4.5-11.0)
[2019-09-27 06:55] LABS: ALANINE AMINOTRANSFERASE 47 U/L (12-78); ALBUMIN 2.8 G/DL (3.4-5.0); ALBUMIN/GLOBULIN RATIO 0.6 (1.1-1.5); ALKALINE PHOSPHATASE 48 IU/L (46-116); ANION GAP 9 (8-16); ASPARTATE AMINO TRANSFERASE 21 U/L (10-37); BILIRUBIN,TOTAL 0.2 MG/DL (0.1-1.0); BLOOD UREA NITROGEN 22 MG/DL (7-18); BUN/CREATININE RATIO 24.2 (5.4-32.0); CALCIUM 8.4 MG/DL (8.5-10.1); CHLORIDE 104 MMOL/L (99-107); CREATININE 0.91 MG/DL (0.60-1.10); GLUCOSE 91 MG/DL (70-104); POTASSIUM 4.4 MMOL/L (3.5-5.1); SODIUM 137 MMOL/L (135-145); TOTAL CARBON DIOXIDE 23.9 MMOL/L (24-32); TOTAL PROTEIN 7.4 G/DL (6.4-8.2); eGFR 86 ML/MIN
[2019-09-27 07:27] LABS: PLATELET ESTIMATE INCREASED; TOTAL CELLS COUNTED 100
[2019-09-27] MEDS: HYDROcodone/acetaminophen 10/325mg tab PO PRN (07:39)
[2019-09-27] MEDS: heparin, porcine 5000 units/ml vial SQ SCH (07:40)
[2019-09-27] MEDS: linezolid 600mg tablet PO SCH (07:40)
[2019-09-27] MEDS: lactobacillus rhamnosus 10,000 MMU CELLS/CAPSULE PO SCH (07:44)
[2019-09-27] MEDS: K and/or MAG REPLACEMENT MC SCH (08:00)
[2019-09-27] MEDS ORDERED: LORazepam 0.5 MG tablet PO PRN (08:35)
[2019-09-27 09:00] VITALS: BP 159/75
[2019-09-27] MEDS ORDERED: LINE600T14 PO (10:33)
[2019-09-27] MEDS ORDERED: HYDR-4383 PO (10:33)
[2019-09-27] MEDS ORDERED: DOCU-148 PO (10:33)
[2019-09-27] MEDS ORDERED: HYDR-3965 PO (10:46)
[2019-09-27] MEDS ORDERED: LINE600T11 PO (10:46)
== END 2019-09-27 14:00 | disposition short-term general hospital (02) | DRG 710 ==
LOC: ER 14:36 → ED HOLD 17:26 → ORTHO 4S 18:45
PROVIDERS: ADMIT Internal Medicine; ATTEND Internal Medicine
PROC: 0JBH0ZZ Excision of Left Lower Arm Subcutaneous Tissue and Fascia, Open Approach (ICD-10-PCS; principal; 2019-09-21 10:39)
PROC: 0JQH0ZZ Repair Left Lower Arm Subcutaneous Tissue and Fascia, Open Approach (ICD-10-PCS; 2019-09-22)
DX: A40.9 Streptococcal sepsis, unspecified (principal); F17.210 Nicotine dependence, cigarettes, uncomplicated; N17.9 Acute kidney failure, unspecified; F12.90 Cannabis use, unspecified, uncomplicated; F17.200 Nicotine dependence, unspecified, uncomplicated; E86.0 Dehydration; M72.6 Necrotizing fasciitis; L03.114 Cellulitis of left upper limb; L23.9 Allergic contact dermatitis, unspecified cause; L27.0 Generalized skin eruption due to drugs and medicaments taken internally; Z59.0 Homelessness
CPT/HCPCS: 36415; 70450; 73030; 73080; 73201; 76881; 80048; 80053; 80202; 80305; 81001; 82550; 82948; 83605; 83735; 85025; 85027; 85610; 87040; 87070; 87077; 87081; 87088; 87186; 93005; 93306; 97110; 97116; 97161; 97530; 99285; A4618; A6446; A6449; A7000; C9113; G0378; J0131; J0690; J0696; J1100; J1170; J1644; J2001; J2175; J2250; J2270; J2405; J2704; J3010; J3370; J3490; J7030; J7040; J7120; Q0163; Q9967

== ENCOUNTER 2019-10-04 12:05 | Outpatient (CLI) | payer MEDICAID ==
[~2019-10-04 12:05] MED LIST: DOCU-148 PO; HYDR-3965 PO; LINE600T11 PO
[2019-10-04] MEDS ORDERED: LIDOcaine 2% 5ml jelly ONE (12:41)
[2019-10-04] MEDS ORDERED: mupirocin 2% ointment 22GM ONE (12:50)
== END 2019-10-04 13:02 | disposition home or self-care (01) ==
LOC: WOUND CARE 12:05
PROVIDERS: ATTEND Nurse Practitioner
DX: T81.31XA Disruption of external operation (surgical) wound, not elsewhere classified, initial encounter (principal); E86.0 Dehydration; F17.210 Nicotine dependence, cigarettes, uncomplicated; F12.90 Cannabis use, unspecified, uncomplicated; Y83.8 Other surgical procedures as the cause of abnormal reaction of the patient, or of later complication, without mention of misadventure at the time of the procedure; Y92.238 Other place in hospital as the place of occurrence of the external cause
CPT/HCPCS: G0463